=== PATIENT | female | born 1985 | race African-American/Black ===

== ENCOUNTER 2018-10-08 09:30 | Emergency (ER) | payer OTHER ==
[~2018-10-08] VITALS: Ht 175.3 cm; Wt 145.2 kg
[~2018-10-08 09:30] MED LIST: BACTRIM DS TAB1 EACH PO; FLAGYL500 MG PO; PROVENTIL; TYLENOL W/CODEI1 TA2 PO
[2018-10-08] MEDS ORDERED: LISINOPRIL10 MG PO (09:39)
[2018-10-08 10:00] LABS: ABSOLUTE NEUTROPHILS 4.8 thou/uL (1.4-8.2); BASOPHILS 0.9 % (0.0-2.0); EOSINOPHILS 1.7 % (0.0-3.0); HEMATOCRIT 37.9 % (37.0-47.0); LYMPHOCYTES 30.4 % (24.0-44.0); MCH 29.1 pg (26.0-34.0); MCHC 34.2 g/dL (28.0-37.0); MONOCYTES 6.9 % (1.0-8.0); PLATELET COUNT 245 thou/uL (150-400); POLYS 60.1 % (36.0-66.0); RBC 4.45 mil/uL (4.20-5.00); RDW 15.6 % (10.5-14.5)
[2018-10-08 10:07] LABS: ANION GAP 8 mmol/L (7-16); BUN 10 mg/dL (7-18); CALCIUM 8.8 mg/dL (8.5-10.1); CHLORIDE 106 mmol/L (98-107); CO2 26 mmol/L (21-32); CREATININE 1.2 mg/dL (0.6-1.0); GLUCOSE 107 mg/dL (74-106); SODIUM 140 mmol/L (136-145)
[2018-10-08 10:18] LABS: ALBUMIN 2.9 g/dL (3.4-5.0); MAGNESIUM 2.3 mg/dL (1.8-2.4); SGOT 17 U/L (15-37); SGPT 16 U/L (30-65); TOTAL BILIRUBIN 0.4 mg/dL (<0.1-1.0); TROPONIN-I <0.06 ng/mL (<0.06)
[2018-10-08] MEDS ORDERED: TYLENOL EXTRA500 MG PO (11:19)
[2018-10-08] MEDS ORDERED: CEPACOL SORE T1 EAC7 PO (11:19)
[2018-10-08 11:23] VITALS: BP 140/91
--- NOTE | 2018-10-09 07:27 | EKG ---
[address] [address] ELECTROCARDIOGRAM REPORT Name: KYLER JORDAN Room #: DEP Naz#: [id number] ������������������ Admission: 10/08/18 ������������������ Attend Phys: Discharge: 10/08/18 ������������������ Date of : 81 Report #: [id number] ����������������������������������������������������������������� [id number] THIS REPORT FOR: //name// [facility] ED Test Date: 2018-10-08 Test Time: 09:34:30 Pat Name: KYLER JORDAN Department: Room: Gender: F Piler: [email or web address] : 1985 Requested By: Hayder Morgan Order Number: [id number] MD: Ever Rios Measurements Intervals [place] Rate: 66 P: 4 ID: [id number] QRS: -2 QRSD: 89 T: 2 QT: 393 QTc: 412 Interpretive Statements Sinus rhythm No significant abnormality No previous ECG available for comparison Electronically Signed On 10-09-2018 7:27:04 CDT by Ever Rios [email or web address] ��������������������������������������������� <ELECTRONICALLY SIGNED> ���������������������������������������� By: Ever Rios MD, [facility] ��������������������������������������������� 10/09/18 0727 0934 3 Ever Rios MD, FACC /EPI
== END 2018-10-08 11:23 | disposition home or self-care (01) ==
LOC: ER 09:30
PROVIDERS: Emergency Medicine
DX: B34.9 Viral infection, unspecified (principal); F17.210 Nicotine dependence, cigarettes, uncomplicated

== ENCOUNTER 2018-11-04 00:37 | Emergency (ER) | payer OTHER ==
[~2018-11-04] VITALS: Ht 175.3 cm; Wt 145.2 kg
[~2018-11-04 00:37] MED LIST changes: +CEPACOL SORE T1 EAC7 PO; +LISINOPRIL10 MG PO; +TYLENOL EXTRA500 MG PO
[2018-11-04] MEDS ORDERED: HYDROCHLOROTHIA25 M1 PO (01:24)
[2018-11-04] MEDS ORDERED: PREDNISONE 20 M20 MG PO (02:06)
[2018-11-04] MEDS ORDERED: ELIMITE60 GM TOP (02:06)
[2018-11-04 02:27] VITALS: BP 171/96
== END 2018-11-04 02:29 | disposition home or self-care (01) ==
LOC: ER 00:37
DX: R23.4 Changes in skin texture (principal); I10 Essential (primary) hypertension; J45.909 Unspecified asthma, uncomplicated; E66.9 Obesity, unspecified; F17.210 Nicotine dependence, cigarettes, uncomplicated

== ENCOUNTER 2018-12-15 03:12 | Emergency (ER) | payer OTHER ==
[~2018-12-15] VITALS: Ht 175.3 cm; Wt 145.2 kg
[~2018-12-15 03:12] MED LIST changes: +ELIMITE60 GM TOP; +HYDROCHLOROTHIA25 M1 PO; +PREDNISONE 20 M20 MG PO
[2018-12-15 04:55] LABS: ABSOLUTE NEUTROPHILS 3.5 thou/uL (1.4-8.2); EOSINOPHILS 1.7 % (0.0-3.0); HEMATOCRIT 37.6 % (37.0-47.0); HEMOGLOBIN 12.8 gm/dL (12.0-15.0); MCH 28.9 pg (26.0-34.0); MCHC 34.2 g/dL (28.0-37.0); MCV 84.6 fL (80.0-100.0); MONOCYTES 8.7 % (1.0-8.0); PLATELET COUNT 216 thou/uL (150-400); POLYS 54.6 % (36.0-66.0); RBC 4.44 mil/uL (4.20-5.00); RDW 16.3 % (10.5-14.5); WBC 6.5 thou/uL (4.0-11.0)
[2018-12-15 05:09] LABS: CALCIUM 9.1 mg/dL (8.5-10.1); CREATININE 1.2 mg/dL (0.6-1.0)
[2018-12-15 05:55] LABS: URINE BILIRUBIN NEGATIVE (Negative); URINE BLOOD NEGATIVE (Negative); URINE CLARITY CLEAR; URINE COLOR YELLOW; URINE GLUCOSE-RANDOM* NEGATIVE (Negative); URINE KETONES NEGATIVE (Negative); URINE LEUKOCYTES-REFLEX NEGATIVE (Negative); URINE NITRITE-REFLEX NEGATIVE (Negative); URINE PROTEIN (DIPSTICK) NEGATIVE (Negative); URINE SPECIFIC GRAVITY 1.025 (1.005-1.035); URINE UROBILINOGEN 0.2 E.U./dl (0.2-1.0)
[2018-12-15] MEDS ORDERED: KEPPRA 500 MG500 M1 PO (06:22)
[2018-12-15 06:49] VITALS: BP 150/100
--- NOTE | 2018-12-16 09:10 | EKG ---
[address] [place] [address] ELECTROCARDIOGRAM REPORT Name: KYLER JORDAN Room #: DEP [facility] [id number] Admission: 12/15/18 Attend Phys: Discharge: 12/15/18 Date of : 81 Report #: [id number] THIS REPORT FOR: //name// [facility] ED Test Date: 2018-12-15 Test Time: 05:48:38 Pat Name: KYLER JORDAN Department: Room: Gender: F Butt Sawyer: [email or web address] : 1985 Requested By: Kal Larson Order Number: [id number] MD: Ever Rios Measurements Intervals [place] Rate: 57 P: 20 MO: 134 QRS: 5 QRSD: 96 T: 0 QT: 442 QTc: 431 Interpretive Statements Sinus bradycardia Borderline T abnormalities, inferior leads Compared to ECG 10/08/2018 09:34:30 No significant change was found Electronically Signed On 12-16-2018 9:10:08 CDT by Ever Rios [email or web address] <ELECTRONICALLY SIGNED> By: Ever Rios MD, [facility] 12/16/18 0910 D: 0948 7 Ever Rios MD, FACC /EPI
== END 2018-12-15 06:50 | disposition home or self-care (01) ==
LOC: ER 03:12
PROVIDERS: Emergency Medicine
DX: R56.9 Unspecified convulsions (principal); I10 Essential (primary) hypertension; J45.909 Unspecified asthma, uncomplicated; E66.9 Obesity, unspecified; F17.210 Nicotine dependence, cigarettes, uncomplicated; Z68.42 Body mass index [BMI] 45.0-49.9, adult

== ENCOUNTER 2018-12-16 00:34 | Emergency (ER) | payer OTHER ==
[~2018-12-16] VITALS: Ht 175.3 cm; Wt 145.2 kg
[~2018-12-16 00:34] MED LIST changes: +KEPPRA 500 MG500 M1 PO
[2018-12-16 02:01] VITALS: BP 138/99
== END 2018-12-16 02:02 | disposition home or self-care (01) ==
LOC: ER 00:34
DX: R56.9 Unspecified convulsions (principal); R51 Headache; I10 Essential (primary) hypertension; J45.909 Unspecified asthma, uncomplicated; F17.210 Nicotine dependence, cigarettes, uncomplicated